=== PATIENT | female | born 1975 | race Caucasian/White ===

== ENCOUNTER → 2017-02-01 | Outpatient (CLI) | payer OTHER ==
--- NOTE | 2017-02-01 09:14 | XR ---
EXAMINATION TYPE: XR chest 2V DATE OF EXAM: 02/01/2017 COMPARISON: NONE INDICATION: History of breast cancer pain upper mid back TECHNIQUE: Frontal and lateral views of the chest are obtained. FINDINGS: The heart size is normal. The pulmonary vasculature is normal. The lungs are clear. Osseous structures appear unremarkable. IMPRESSION: 1. No acute pulmonary process.
== END | disposition home or self-care (01) ==
LOC: RADXRMAIN 08:47
PROVIDERS: ATTEND Internal Medicine Hematology & Oncology
DX: C50.211 Malignant neoplasm of upper-inner quadrant of right female breast (principal); Z71.3 Dietary counseling and surveillance; Z17.1 Estrogen receptor negative status [ER-]
CPT/HCPCS: 71020

== ENCOUNTER 2017-04-07 21:39 | Emergency (ER) | payer BC, OTHER ==
[2017-04-07 21:42] VITALS: BP 100/57; PULSE 71; RESP 18; TEMP 98.2
[2017-04-07] MEDS ORDERED: PROPARACAINE 0.5% OPHTH DROPS 15 ML BTL LEFT EYE STA (21:46)
[2017-04-07] MEDS ORDERED: TOBRAMYCIN 0.3% OPHTH DROPS 5 ML BTL LEFT EYE STA (21:56)
--- NOTE | 2017-04-07 21:56 | ED ---
Eye Problem HPI - General Chief complaint: Eye Problems Stated complaint: Eye Problems Time Seen by Provider: 04/07/17 21:45 Source: patient Mode of arrival: ambulatory Limitations: no limitations - History of Present Illness Initial comments: 41-year-old female patient presents to the emergency department today for evaluation of left eye redness, and drainage. Patient states that this morning when she woke up the eye seemed to be mildly irritated however throughout the day symptoms worsened. She states that now her eye appears very red, she does have green drainage, and it seems more irritated. She denies any upper respiratory symptoms. She denies any fever or chills with this. She denies any visual disturbance. Patient denies any recent rash, fever, chills, cough, congestion, shortness breath, chest pain, abdominal pain, nausea, vomiting, diarrhea, constipation, back pain, numbness, tingling, dizziness, weakness, hematuria, dysuria, urinary urgency, urinary frequency, headache, visual changes , or any other complaints. - Related Data Home Medications Medication Instructions Recorded Confirmed No Known Home Medications [No 04/07/17 04/07/17 Known Home Medications] Allergies Allergy/AdvReac Type Severity Reaction Status Date / Time No Known Allergies Allergy Verified 04/07/17 21:43 Review of Systems ROS Statement: Those systems with pertinent positive or pertinent negative responses have been documented in the HPI. ROS Other: All systems not noted in ROS Statement are negative. Past Medical History Past Medical History: Cancer Additional Past Medical History / Comment(s): hx. breast cancer July 2015- finished chemo November History of Any Multi-Drug Resistant Organisms: None Reported Past Surgical History: Breast Surgery, Section, Cholecystectomy Additional Past Surgical History / Comment(s): right breast lumpectomy Past Anesthesia/Blood Transfusion Reactions: No Reported Reaction Past Psychological History: Anxiety Smoking Status: Former smoker Past Alcohol Use History: None Reported Past Drug Use History: None Reported - Past Family History Mother Family Medical History: Cancer General Exam Limitations: no limitations General appearance: alert, in no apparent distress, other (this is a well- developed, well-nourished adult female patient in no acute distress. Vital signs upon presentation were temperature 98.2F, pulse 71, respirations 18, blood pressure 100/57, pulse ox 98% on room air.) Eye exam: Present: PERRL, EOMI, conjunctival injection (left), other (there is evidence of ecchymosis to the left lower eye. There is severe conjunctival injection. Patient does have green purulent drainage noted at both the inner and outer canthus. Patient has good extraocular movements, denies pain with movement. did perform foreseen stain with Wood's lamp examination, there is no evidence of conjunctival abrasion, laceration, or corneal abrasion. Visual acuity was 20/25 bilateral.). Absent: scleral icterus, periorbital swelling ENT exam: Present: normal exam, normal oropharynx, mucous membranes moist Respiratory exam: Present: normal lung sounds bilaterally. Absent: respiratory distress, wheezes, rales, rhonchi, stridor Cardiovascular Exam: Present: regular rate, normal rhythm, normal heart sounds. Absent: systolic murmur, diastolic murmur, rubs, gallop, clicks Neurological exam: Present: alert, oriented X3, CN II-XII intact Psychiatric exam: Present: normal affect, normal mood Skin exam: Present: warm, dry, intact, normal color. Absent: rash Course Vital Signs 04/07/17 21:41 Temperature 98.2 F Pulse Rate 71 Respiratory 18 Rate Blood Pressure 100/57 O2 Sat by Pulse 98 Oximetry Medical Decision Making - Medical Decision Making 41-year-old female patient presented to emergency department today for evaluation of left eye symptoms. Physical examination did reveal left conjunctival injection, chemosis, and purulent drainage. Visual acuity was 20/ 25 bilaterally. Did perform fluids lamp examination with for seen stain, there is no evidence of abrasion or laceration to the eye. Patient will be discharged home with tobramycin eye drops. She is instructed to follow up with the mds rn in 2 days if symptoms aren't improved. She is instructed to return here immediately for any new, worsening, or concerning symptoms. She verbalizes understanding and agrees with this plan. Disposition Clinical Impression: Conjunctivitis Disposition: HOME SELF-CARE Condition: Good Instructions: Conjunctivitis (ED) Additional Instructions: Administer antibiotic drops every 4 hours while awake. Apply cool compresses to the left eye. Follow-up with mds rn in 2 days if her symptoms are not improved. Return here immediately for any new, worsening, or concerning symptoms. Referrals: Rylan Mcwilliams MD [Primary Care Provider] - 1-2 days Anastasia Wheeler MD [STAFF PHYSICIAN] - 1-2 days Time of Disposition: 21:56
== END 2017-04-07 22:06 | disposition home or self-care (01) ==
LOC: EC 21:39
DX: H10.9 Unspecified conjunctivitis (principal); Z85.3 Personal history of malignant neoplasm of breast; Z87.891 Personal history of nicotine dependence
CPT/HCPCS: 99283

== ENCOUNTER → 2018-02-14 | Outpatient (CLI) | payer BC | LOC: RADUSWWP 10:23 | PROVIDERS: ATTEND Obstetrics & Gynecology Obstetrics | DX: Z53.9 Procedure and treatment not carried out, unspecified reason (principal) ==

== ENCOUNTER → 2018-02-14 | Outpatient (CLI) | payer BC ==
[2018-02-14 10:28] VITALS: BMI 37.8
--- NOTE | 2018-02-14 10:50 | P.GSHP ---
History of Present Illness H&P Date: 02/14/18 Patient is a 42 white female who was diagnosed with a right breast cancer at the age of 39. The patient underwent preoperative chemotherapy ATV C every other week for 8 weeks. She then had an additional 8 weeks of every week treatment of Taxotere. She was initially recommended to undergo 12 weeks of Taxotere but could not tolerate the additional treatment. She then underwent a lumpectomy and sentinel node biopsy. She was treated with radiation therapy. 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 She underwent genetic testing and was BRCA1 negative as well as negative for any other genetic predisposition to cancer as per the patient. The patient has no complaints related to her breasts. She does complain of some upper thoracic back discomfort. Her medical oncologist is at [facility]. Her radiation oncologist was out of [facility]. Her surgeon was Magdalene Spring. Family History: 1. mother: at 58 of appendix and colon cancer 2. Maternal grandmother: Breast cancer at the age of 65 3. Maternal great-grandmother: Stomach cancer at 86 Hormonal History: menarche: 13 : 4, 3 children 1 miscarrage, age at first : 29, breast fed: yes BCP: none hormones: none Past surgical history: 1. Right breast lumpectomy and sentinel node biopsy 2. gallbladder 3. submandibular gland on the right 4. 5. Port-A-Cath placement Past medical history: 1. Status post resection of right breast cancer Social history: Smoke: Negative Alcohol: Wine every other week Drugs: none - Constitutional Comment: dry eyes Constitutional: Denies chills, Denies fever - EENT Eyes: denies blurred vision, denies pain Ears: deny: decreased hearing, tinnitus Ears, nose, mouth and throat: Denies headache - Breasts Breasts: bilateral: as per HPI - Cardiovascular Cardiovascular: Denies chest pain, Denies shortness of breath - Respiratory Respiratory: Denies cough, Denies 7 - Gastrointestinal Gastrointestinal: Denies abdominal pain, Denies diarrhea, Denies nausea, Denies vomiting - Menstruation Comment: The patient was put into menopause secondary to chemotherapy in her late 30s Menstruation: Reports postmenopausal - Genitourinary (Male) Genitourinary: Denies dysuria, Denies hematuria - Musculoskeletal Comment: back pain - Integumentary Integumentary: Denies pruritus, Denies rash - Neurological Neurological: Denies numbness, Denies weakness - Psychiatric Psychiatric: Reports anxiety, Reports depression - Endocrine Endocrine: Denies fatigue, Denies weight change - Hematologic/Lymphatic Comment: none - Allergic/Immunologic Allergic/Immunologic: Reports seasonal allergies Past Medical History Past Medical History: Cancer Additional Past Medical History / Comment(s): hx. breast cancer July 2015- finished chemo November History of Any Multi-Drug Resistant Organisms: None Reported Past Surgical History: Breast Surgery, Section, Cholecystectomy Additional Past Surgical History / Comment(s): right breast lumpectomy Past Anesthesia/Blood Transfusion Reactions: No Reported Reaction Past Psychological History: Anxiety Smoking Status: Former smoker Past Alcohol Use History: None Reported Past Drug Use History: None Reported - Past Family History Mother Family Medical History: Cancer Medications and Allergies Home Medications Medication Instructions Recorded Confirmed Type No Known Home Medications 04/07/17 04/07/17 History Allergies Allergy/AdvReac Type Severity Reaction Status Date / Time No Known Allergies Allergy Verified 04/07/17 21:43 Surgical - Exam BMI: 37.8 - General well developed, well nourished, no distress, obese - Eyes normal ocular movement - ENT no hearing loss, no congestion - Neck no masses, trachea midline - Respiratory normal respiratory effort, clear to auscultation - Cardiovascular Rhythm: regular Heart Sounds: normal: S1, S2 - Abdomen Abdomen: soft, non tender, no guarding, no rigid, no rebound - Neurologic no disoriented, no combative - Musculoskeletal normal gait, normal posture - Psychiatric oriented to time, oriented to person, oriented to place, speech is normal, memory intact Breast examination: Right breast: Well-healed scar from prior lumpectomy no dominant masses or nodules of concern a multi-positional examination Right axilla: No adenopathy of concern Left breast: No dominant masses or nodules of concern Left axilla: No adenopathy of concern Results reports pending from outside institutions Assessment and Plan Assessment: Impression: 1. Status post right breast lumpectomy sent sentinel node biopsy for right breast stage II a cancer 2. Anxiety/depression 3. Back pain Plan: 1. Bilateral breast mammograms if these are normal patient will follow up in 6 months time for physician exam of the breast for normal surveillance 2. Medical management of medical problems 3. X-rays of the C-spine and thoracic spine rule out metastatic disease secondary to back pain 4. Follow up next week after mammogram and C-spine and thoracic spine x-rays performed CC: Dr. [place])
--- NOTE | 2018-02-20 12:01 | MM ---
Reason for exam: additional evaluation requested from prior study. Last mammogram was performed 1 year and 5 months ago. History: Patient is postmenopausal and has history of bilateral breast cancer at age 39. Family history of breast cancer in maternal grandmother. Lumpectomy of the right breast. Physical Findings: Nurse did not find any significant physical abnormalities on exam. MG 3D Diag Mammo W/Cad MAYANK Bilateral CC and MLO view(s) were taken. Prior study comparison: September 26, 2016, mammogram, performed at [facility]. January 04, 2016, mammogram, performed at [facility]. There are scattered fibroglandular densities. Post surgical changes right lower inner quadrant. No significant new findings when compared with previous films. These results were verbally communicated with the patient on 02/20/18. ASSESSMENT: Benign, BI-RAD 2 RECOMMENDATION: Follow-up diagnostic mammogram of both breasts in 1 year.
== END | disposition home or self-care (01) ==
LOC: WWCWWP 10:10
PROVIDERS: ATTEND Surgery
DX: Z08 Encounter for follow-up examination after completed treatment for malignant neoplasm (principal); Z85.3 Personal history of malignant neoplasm of breast
CPT/HCPCS: 77062; 77066

== ENCOUNTER 2018-05-18 00:58 | Emergency (ER) | payer BC ==
[2018-05-18 01:15] VITALS: RESP 18; TEMP 98
[2018-05-18] MEDS ORDERED: PROPARACAINE 0.5% OPHTH DROPS 15 ML BTL RIGHT EYE STA (01:47)
--- NOTE | 2018-05-18 02:51 | ED ---
Eye Problem HPI - General Source: patient, RN notes reviewed Mode of arrival: ambulatory Limitations: no limitations <Gary Bishop - Last Filed: 05/18/18 04:37> <Estelle Plaza - Last Filed: 05/22/18 00:08> - General Chief complaint: Eye Problems Stated complaint: Eye swelling Time Seen by Provider: 05/18/18 01:40 - History of Present Illness Initial comments: 42-year-old female presents to the emergency Department chief complaint of right eye pain. Patient states his started last night. Patient states that feels like a pressure eye. Patient was seen at urgent care in [place] and states that they told her to emergency department by called in some eyedrops for possible glaucoma. She states that she has no blurred vision but it's photosensitive. Patient states also had increased tearing and redness. Patient states his been no drainage per se. Patient denies fevers or chills. Denies any trauma. Patient states she drove back from [facility]. (Gary Bishop) - Related Data Home Medications Medication Instructions Recorded Confirmed Citalopram Hydrobromide [CeleXA] 40 tab PO DAILY 02/14/18 02/14/18 Allergies Allergy/AdvReac Type Severity Reaction Status Date / Time No Known Allergies Allergy Verified 05/18/18 01:15 Review of Systems ROS Other: All systems not noted in ROS Statement are negative. <Gary Bishop - Last Filed: 05/18/18 04:37> ROS Other: All systems not noted in ROS Statement are negative. <Estelle Plaza - Last Filed: 05/22/18 00:08> ROS Statement: Those systems with pertinent positive or pertinent negative responses have been documented in the HPI. Past Medical History Past Medical History: Cancer Additional Past Medical History / Comment(s): hx. breast cancer July 2015- finished chemo November History of Any Multi-Drug Resistant Organisms: None Reported Past Surgical History: Breast Surgery, Section, Cholecystectomy Additional Past Surgical History / Comment(s): right breast lumpectomy Past Anesthesia/Blood Transfusion Reactions: No Reported Reaction Past Psychological History: Anxiety Smoking Status: Former smoker Past Alcohol Use History: None Reported Past Drug Use History: None Reported - Past Family History Mother Family Medical History: Cancer <Gary Bishop - Last Filed: 05/18/18 04:37> General Exam Limitations: no limitations General appearance: alert, in no apparent distress Head exam: Present: atraumatic, normocephalic, normal inspection Eye exam: Present: PERRL, EOMI, conjunctival injection. Absent: normal appearance, scleral icterus, periorbital swelling Expanded Eyelids: Normal Inspection: Bilateral Pupils: Reactive: Right (Sluggish on right) Sclera/Conjunctival: Injection: Right Anterior chamber: Normal Inspection: Bilateral Posterior chamber: Normal Inspection: Bilateral Visual acuity (R) = 20/: 40 Visual acuity (L) = 20/: 40 With correction: No IOP (R) in mmH IOP (L) in mmH IOP measured with: Tonopen ENT exam: Present: normal exam, normal oropharynx, mucous membranes moist, TM's normal bilaterally, normal external ear exam Neck exam: Present: normal inspection, full ROM. Absent: tenderness, meningismus, lymphadenopathy Respiratory exam: Present: normal lung sounds bilaterally. Absent: respiratory distress, wheezes, rales, rhonchi, stridor Cardiovascular Exam: Present: regular rate, normal rhythm, normal heart sounds. Absent: systolic murmur, diastolic murmur, rubs, gallop, clicks <Gary Bishop - Last Filed: 05/18/18 04:37> Vital Signs 05/18/18 05/18/18 01:11 04:01 Temperature 98.0 F Pulse Rate 81 91 Respiratory 18 18 Rate Blood Pressure 118/80 127/89 O2 Sat by Pulse 97 97 Oximetry Medical Decision Making <Gary Bishop - Last Filed: 05/18/18 04:37> <Estelle Plaza P - Last Filed: 05/22/18 00:08> - Medical Decision Making 42-year-old female presented emergency Department for right eye pain. Patient was evaluated by ophthalmology Dr. Chacon in the emergency Department. Patient has iritis and we treated with topical steroids, close follow-up with ophthalmology in office. (Gary Bishop) I personally saw and examined the patient. I reviewed and agree with the mid- level provider findings including all diagnostic interpretations and treatment plans as written unless otherwise stated. I contacted ophthalmology on-call Dr. Chacon who recommended PO Acetazolamide came to the bedside and evaluated the patient. He has a high suspicion that this is a severe iritis causing increased pressures. At this time he recommends topical steroids and B- blockers. He will reevaluate the patient in his office 2 times this week. Patient is agreeable with this plan patient was discharged home in stable condition. (Estelle Plaza) Disposition Is patient prescribed a controlled substance at d/c from ED?: No <Gary Bishop - Last Filed: 05/18/18 04:37> <Estelle Plaza - Last Filed: 05/22/18 00:08> Clinical Impression: Iritis Disposition: HOME SELF-CARE Condition: Stable Instructions: Iritis (ED) Additional Instructions: Please return to the Emergency Department if symptoms worsen or any other concerns. Referrals: Isak Biggs DO [Primary Care Provider] - 1-2 days Reji Chacon MD [STAFF PHYSICIAN] - 1-2 days
[2018-05-18] MEDS ORDERED: acetaZOLAMIDE 250 MG TAB PO STA (03:35)
[2018-05-18 04:02] VITALS: BP 127/89; PULSE 91
[2018-05-18] MEDS ORDERED: prednisoLONE ACETATE 1% OPHTH DROPS 5 ML BTL RIGHT EYE SCH (05:00)
--- NOTE | 2018-05-18 05:21 | P.CON ---
Consult Note - . Consult date: 05/18/18 Assessment/Plan:: 42 y/o female with previous history of elevated IOP which has been untreated, who presents after 2-3 day history of discomfort in the right eye. Was seen and noted to have an elevated pressure a couple of days ago and released without treatment. This morning awoke and was experiencing a strange discomfort and increased light sensitivity. IOP reported at ~ 45 mm Hg OD and 17 mm Hg OS with visual acuities of 20/40 OU from ER this morning and prompted this examination. SLE: Ext: mild ptosis OD and light sensitivity. conj: mild injection with ciliary flush OD, no discharge; OS normal Cornea: clear OU AC: 2+ flare and rare cells OD, D&Q OS Iris: miotic OD, moving; normal OS Lens: clear OU (undilated) Vit: clear OU Optic nerve: S/F/P OU, C:D 0.35 OD, 0.25 OS. vasc: normal with good perfusion A: Iritis possible Aly Roxy, repeat IOP following 500 mg acetazolamide debatable, as IOP OD 27 mm Hg as was OS P: recommend prednisolone acetate 1% every 2 hours while awake, and timolol 0.5 % twice daily follow up on Saturday @ [facility] for follow up.
[2018-05-18] MEDS ORDERED: TIMOLOL 0.5% OPHTH DROPS 5 ML BTL RIGHT EYE SCH (09:00)
== END 2018-05-18 05:00 | disposition home or self-care (01) ==
LOC: EC 00:58 → SUPCPDRO 00:58 → EC 05:00
DX: H20.9 Unspecified iridocyclitis (principal); F41.9 Anxiety disorder, unspecified; Z79.899 Other long term (current) drug therapy; Z87.891 Personal history of nicotine dependence; Z85.3 Personal history of malignant neoplasm of breast; Z92.21 Personal history of antineoplastic chemotherapy
CPT/HCPCS: 99283

== ENCOUNTER → 2018-05-23 | Outpatient (CLI) | payer BC ==
--- NOTE | 2018-05-23 11:12 | US ---
EXAMINATION TYPE: US pelvic complete DATE OF EXAM: 05/23/2018 COMPARISON: NONE CLINICAL HISTORY: N95.0 Postmenopausal bleeding. Pt has H/O breast CA with chemo treatments in 2015 t hat stopped her menses, recently had vaginal bleeding in Apr TECHNIQUE: Transabdominal (TA). Transabdominal sonographic images of the pelvis were acquired. Date of LMP: 2015, then recently had vaginal bleeding in April EXAM MEASUREMENTS: Uterus: 7.7 x 4.6 x 4.0 cm Endometrial Stripe: 0.5 cm Right Ovary: 3.1 x 1.6 x 2.1 cm Left Ovary: 2.4 x 1.8 x 2.6 cm 1. Uterus: Retroverted Heterogeneous 2. Endometrium: wnl 3. Right Ovary: wnl, follicle= 1.0 cm 4. Left Ovary: wnl 5. Bilateral Adnexa: wnl 6. Posterior cul-de-sac: wnl IMPRESSION: 1. No significant abnormality appreciated.
== END ==
LOC: RADUSWWP 08:53
PROVIDERS: ATTEND Obstetrics & Gynecology Obstetrics
DX: N95.0 Postmenopausal bleeding (principal)
CPT/HCPCS: 76856

== ENCOUNTER → 2018-10-22 | Outpatient (CLI) | payer BC ==
[2018-10-22 16:42] LABS: Basophils % (A) 0 %; Eosinophils # (A) 0.1 k/uL (0-0.7); Eosinophils % (A) 2 %; HCT 42.4 % (34.0-46.0); HGB 13.4 gm/dL (11.4-16.0); Lymphocytes # (A) 1.4 k/uL (1.0-4.8); Lymphocytes % (A) 20 %; MCH 28.7 pg (25.0-35.0); MCHC 31.6 g/dL (31.0-37.0); MCV 90.7 fL (80.0-100.0); Mean Platelet Volume 7.4; Monocytes # (A) 0.4 k/uL (0-1.0); Monocytes % (A) 5 %; Neutrophils # (A) 5.1 k/uL (1.3-7.7); Neutrophils % (A) 72 %; Platelet Count 293 k/uL (150-450); RBC 4.67 m/uL (3.80-5.40); WBC 7.2 k/uL (3.8-10.6)
[2018-10-22 20:51] LABS: Erythrocyte Sedimentation Rate 8 mm/hr (0-20)
[2018-10-22 23:07] LABS: Albumin 4.3 g/dL (3.80-4.90); Albumin/Globulin Ratio 2.53 (1.60-3.17); Anion Gap 10.4 mmol/L (4.00-12.00); C Reactive Protein 0.9 mg/dL (0.0-0.8); Calcium 9.3 mg/dL (8.7-10.3); Carbon Dioxide 22.6 mmol/L (21.6-31.8); Globulin 1.7 g/dL (1.6-3.3); Total Bilirubin 0.3 mg/dL (0.3-1.2)
[2018-10-22 23:11] LABS: Rheumatoid Factor 8 IU/mL (0-15)
[2018-10-23 10:20] LABS: Angiotensin-1 Converting Enz. 67 U/L (8-52)
[2018-10-23 15:04] LABS: C-ANCA <1:20 Titer (<1:20); P-ANCA <1:20 Titer (<1:20)
== END | disposition home or self-care (01) ==
LOC: LABWHC1 15:40
PROVIDERS: ATTEND Internal Medicine Rheumatology
DX: M25.50 Pain in unspecified joint (principal)
CPT/HCPCS: 36415; 80053; 82164; 83516; 85025; 85652; 86038; 86140; 86255; 86431; 86480; 86618; 86780

== ENCOUNTER 2018-10-31 08:27 | Emergency (ER) | payer BC, OTHER ==
[2018-10-31 08:42] VITALS: TEMP 97.7
[2018-10-31] MEDS ORDERED: IBUPROFEN 800 MG TAB PO STA (08:55)
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
[2018-10-31 09:35] VITALS: BP 108/64; PULSE 76; RESP 16
== END 2018-10-31 09:34 | disposition home or self-care (01) ==
LOC: EC 08:27
DX: S50.12XA Contusion of left forearm, initial encounter (principal); S50.11XA Contusion of right forearm, initial encounter; S20.219A Contusion of unspecified front wall of thorax, initial encounter; M25.531 Pain in right wrist; Z85.3 Personal history of malignant neoplasm of breast; Z87.891 Personal history of nicotine dependence; V89.2XXA Person injured in unspecified motor-vehicle accident, traffic, initial encounter; Y92.410 Unspecified street and highway as the place of occurrence of the external cause
CPT/HCPCS: 71046; 99284

== ENCOUNTER → 2019-04-17 | Outpatient (CLI) | payer BC ==
--- NOTE | 2019-04-20 08:14 | MM ---
Reason for exam: additional evaluation requested from prior study. Last mammogram was performed 1 year and 2 months ago. History: Patient is postmenopausal and has history of bilateral breast cancer at age 39. Family history of breast cancer in maternal grandmother at age 65. Lumpectomy of the right breast. Chemotherapy. Radiation therapy of the right breast. Physical Findings: Nurse did not find any significant physical abnormalities on exam. MG 3D Diag Mammo W/Cad MAYANK Bilateral CC and MLO view(s) were taken. Prior study comparison: February 14, 2018, bilateral MG 3d diag mammo w/cad MAYANK. September 26, 2016, mammogram, performed at [facility]. There are scattered fibroglandular densities. Finding: Architectural distortion in the lower inner quadrant, posterior position of the right breast. There is no discrete abnormality. These results were verbally communicated with the patient and result sheet given to the patient on 04/17/19. ASSESSMENT: Benign, BI-RAD 2 RECOMMENDATION: Follow-up diagnostic mammogram of both breasts in 1 year.
== END | disposition home or self-care (01) ==
LOC: RADMAMWWP 12:58
PROVIDERS: ATTEND Surgery
DX: Z85.3 Personal history of malignant neoplasm of breast (principal)
CPT/HCPCS: 77062; 77066

== ENCOUNTER → 2019-05-01 | Outpatient (CLI) | payer BC ==
[2019-05-01 14:35] VITALS: BP 130/86; PULSE 106; RESP 16; TEMP 97.4
--- NOTE | 2019-05-01 14:55 | P.PN ---
Subjective Progress Note Date: 05/01/19 Principal diagnosis: surveillance for stage IIA right breast cancer Patient is a 42 white female who was diagnosed with a right breast cancer at the age of 39. The patient underwent preoperative chemotherapy ATV C every other week for 8 weeks. She then had an additional 8 weeks of every week treatment of Taxotere. She was initially recommended to undergo 12 weeks of Taxotere but could not tolerate the additional treatment. She then underwent a lumpectomy and sentinel node biopsy. She was treated with radiation therapy. 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 She had triple negative disease, ER, ID, HER-2/alejandra negative. She underwent genetic testing and was BRCA1 negative as well as negative for any other genetic predisposition to cancer as per the patient. The patient has no complaints related to her breasts. She does complain of some upper thoracic back discomfort. Her medical oncologist is at [facility]. [facility] radiation [facility] out [facility]. Her surgeon was Magdalene Spring. The back pain has not changed. She was recommended to get xrays last year but this was not done. She will get x rays at this time. It feels better when she gets massage therapy. a bilateral mammogram 3-D on [id number] this was benign BIRADS 2 and repeat bi lateral mammogram in 1 year recommended. Family History: 1. mother: at 58 of appendix and colon cancer 2. Maternal grandmother: Breast cancer at the age of 65 3. Maternal great-grandmother: Stomach cancer at 86 Hormonal History: menarche: 13 : 4, 3 children 1 misc[place]age, age at first : 29, breast fed: yes periods stopped after chemotherapy, now hormones tested and told post-menopausal BCP: none hormones: none Past surgical history: 1. Right breast lumpectomy and sentinel node biopsy 2. gallbladder 3. submandibular gland on the right 4. 5. Port-A-Cath placement Past medical history: 1. Status post resection of right breast cancer Social history: Smoke: Negative Alcohol: Wine every other week Drugs: none - Constitutional Comment: dry eyes Constitutional: Denies chills, Denies fever - EENT Eyes: denies blurred vision, denies pain Ears: deny: decreased hearing, tinnitus Ears, nose, mouth and throat: Denies headache - Breasts Breasts: bilateral: as per HPI - Cardiovascular Cardiovascular: Denies chest pain, Denies shortness of breath - Respiratory Respiratory: Denies cough, Denies 7 - Gastrointestinal Gastrointestinal: Denies abdominal pain, Denies diarrhea, Denies nausea, Denies vomiting - Menstruation Comment: The patient was put into menopause secondary to chemotherapy in her late 30s Menstruation: Reports postmenopausal - Genitourinary (Male) Genitourinary: Denies dysuria, Denies hematuria - Musculoskeletal Comment: back pain - Integumentary Integumentary: Denies pruritus, Denies rash - Neurological Neurological: Denies numbness, Denies weakness - Psychiatric Psychiatric: Reports anxiety, Reports depression - Endocrine Endocrine: Denies fatigue, Denies weight change - Hematologic/Lymphatic Comment: none - Allergic/Immunologic Allergic/Immunologic: Reports seasonal allergies Past Medical History Past Medical History: Cancer Additional Past Medical History / Comment(s): hx. breast cancer July 2015- finished chemo November History of Any Multi-Drug Resistant Organisms: None Reported Past Surgical History: Breast Surgery, Section, Cholecystectomy Additional Past Surgical History / Comment(s): right breast lumpectomy Past Anesthesia/Blood Transfusion Reactions: No Reported Reaction Past Psychological History: Anxiety Smoking Status: Former smoker Past Alcohol Use History: None Reported Past Drug Use History: None Reported Objective - Exam BMI 41.2 - Constitutional General appearance: Present: obese - EENT Eyes: Present: EOMI ENT: Present: hearing grossly normal - Neck Neck: Present: normal ROM - Respiratory Respiratory: bilateral: CTA - Cardiovascular Rhythm: regular Heart sounds: normal: S1, S2 - Gastrointestinal General gastrointestinal: Present: soft - Integumentary Integumentary: Present: normal turgor - Musculoskeletal Musculoskeletal: Present: gait normal - Psychiatric Psychiatric: Present: A&O x's 3, appropriate affect - Additional findings Additional findings: breast exam: right breast is smaller than left breast right breast: changes related to radiation, well-healed scar from prior surgery, no evidence of any recurrent cancer, no dominant masses or nodules of concern Right axilla: No adenopathy of concern Left breast: Fibrocystic changes a multi-positional exam no dominant masses or nodules of concern Left axilla: No adenopathy of concern Assessment and Plan Assessment: Impression: 1. right breast stage IIA breast cancer, status post neoadjuvant chemotherapy 2. status post radiation therapy 3. back/cervical pain Plan: 1. cervical and thoracic x rays, follow up 2. follow up after xrays 3. repeat mammogram bilaterl 1 year 4. follow up in 6 months CC: Dr. Amelia [facility] Encounter 20 minutes > 50% spent in planning counselling Time with Patient: Less than 30
== END ==
LOC: WWCWWP 14:22
PROVIDERS: ATTEND Surgery
DX: Z53.9 Procedure and treatment not carried out, unspecified reason (principal)

== ENCOUNTER → 2019-07-16 | Outpatient (CLI) | payer BC ==
[2019-07-16 09:21] LABS: Basophils % (A) 0 %; Eosinophils # (A) 0.1 k/uL (0-0.7); Eosinophils % (A) 2 %; HCT 45.6 % (34.0-46.0); HGB 14.6 gm/dL (11.4-16.0); Lymphocytes # (A) 1.2 k/uL (1.0-4.8); Lymphocytes % (A) 19 %; MCH 29.2 pg (25.0-35.0); MCV 91.1 fL (80.0-100.0); Mean Platelet Volume 7.4; Monocytes # (A) 0.3 k/uL (0-1.0); Monocytes % (A) 5 %; Neutrophils # (A) 4.2 k/uL (1.3-7.7); Neutrophils % (A) 69 %; Platelet Count 319 k/uL (150-450); RBC 5.01 m/uL (3.80-5.40); RDW 12.8 % (11.5-15.5); WBC 6.1 k/uL (3.8-10.6)
[2019-07-16 16:04] LABS: African American GFR (CKD) 90.1 (60.0-200.0); Albumin 4.1 g/dL (3.80-4.90); Albumin/Globulin Ratio 2.16 (1.60-3.17); Anion Gap 7.5 mmol/L (4.00-12.00); BUN/Creat Ratio 14.44 Ratio (12.00-20.00); Calcium 9.3 mg/dL (8.7-10.3); Carbon Dioxide 30.5 mmol/L (21.6-31.8); Chol/HDL Ratio 3.55; Globulin 1.9 g/dL (1.6-3.3); LDL Cholesterol,Calculated 114.2 mg/dL (0.0-131.0); Non-African American GFR(CKD) 77.8 (60.0-200.0); Potassium 4.3 mmol/L (3.5-5.5); Total Bilirubin 0.5 mg/dL (0.2-1.2); VLDL Calculation 20.8 mg/dL (5.00-40.00)
== END | disposition home or self-care (01) ==
LOC: LABWHC1 08:36
PROVIDERS: ATTEND Family Medicine
DX: E66.9 Obesity, unspecified (principal)
CPT/HCPCS: 36415; 80053; 80061; 84443; 85025

== ENCOUNTER → 2020-04-22 | Outpatient (CLI) | payer BC | END | disposition home or self-care (01) | LOC: RADMAMWWP 06:59 | PROVIDERS: ATTEND Surgery | DX: Z53.9 Procedure and treatment not carried out, unspecified reason (principal) ==

== ENCOUNTER → 2021-02-13 | Outpatient (CLI) | payer BC ==
--- NOTE | 2021-02-13 11:31 | XR ---
EXAMINATION TYPE: XR lumbosacral spine min 4V DATE OF EXAM: 02/13/2021 COMPARISON: None HISTORY: Lumbago TECHNIQUE: 5 view lumbar spine FINDINGS: There 5 lumbar-type vertebral bodies. The pedicles are intact. Disc heights are preserved. Vertebral body heights are preserved. Alignment is normal. No spondylolytic defects are evident. IMPRESSION: 1. Normal 5 view lumbar spine
== END | disposition home or self-care (01) ==
LOC: RADXRYALE 10:39
PROVIDERS: ATTEND Physician Assistant Medical
DX: M54.5 Low back pain (principal)
CPT/HCPCS: 72110

== ENCOUNTER → 2021-04-18 | Outpatient (CLI) | payer BC ==
--- NOTE | 2021-04-18 23:43 | US ---
EXAMINATION TYPE: US kidneys/renal and bladder DATE OF EXAM: 04/18/2021 COMPARISON: NONE CLINICAL HISTORY: R93.429 Abnormal radiologic findings on diagnostic. Pt states possible renal cyst v isualized on CT at outside facility EXAM MEASUREMENTS: Right Kidney: 10.5 x 4.9 x 4.6 cm Left Kidney: 11.4 x 5.4 x 5.3 cm Right Kidney: Appeared wnl Left Kidney: Appeared wnl Bladder: wnl Bilateral Jets seen: Yes IMPRESSION: 1. Normal renal ultrasound.
== END | disposition home or self-care (01) ==
LOC: RADUSWWP 16:12
PROVIDERS: ATTEND Family Medicine
DX: R93.429 Abnormal radiologic findings on diagnostic imaging of unspecified kidney (principal)
CPT/HCPCS: 76770